=== PATIENT | female | born 1980 | race Caucasian/White ===

== ENCOUNTER 2016-12-09 15:30 | Emergency (ER) | payer OTHER ==
[~2016-12-09] VITALS: Ht 170.2 cm; Wt 106.3 kg
[~2016-12-09 15:30] MED LIST: ALPRAZOLAM1 MG PO; ASPIR 8181 M1 PO; CRESTOR PO; CYMBALTA PO; CYMBALTA60 MG PO; Desyrel PO; GLUCOPHAGE1000 MG PO; GLUCOPHAGE500 MG PO; IMODIUM2 MG PO; IRON PO; LANTUS 10100 UNITS/ SC; LANTUS 3 M100 UNITS1 SC; LEXAPRO20 MG PO; LISINOPRIL PO; MAGNESIUM250 MG PO; MOTRIN800 MG PO; MULTI VITAMIN1 EACH PO; NOVOLIN N100 UNITS/ SC; SEROQUEL100 MG PO; SEROquel PO; TRAZODONE HCL50 MG PO; XANAX1 MG PO
[2016-12-09] MEDS ORDERED: CELEXA40 MG PO (16:02)
[2016-12-09 16:40] LABS: EOSINOPHIL (%) 0.3 % (0-5); HEMATOCRIT 40.8 % (36.0-46.0); IMMATURE GRANULOCYTE (%) 0.5 % (0.0-0.7); INSTRUMENT ABS NEUTROPHIL CT 7.4 K/uL; LYMPHOCYTE COUNT 0.2 K/uL (1.0-2.8); MCH 27.8 PG (29.0-34.0); MCHC 33.1 G/DL (30.0-36.0); MEAN PLAT.VOLUME 10.6 uM^3 (9.5-12.4); MONOCYTE (%) 1.9 % (3-12); MONOCYTE COUNT 0.2 K/uL (0-0.8); NEUTROPHIL (%) 94.1 % (45-76); NEUTROPHIL COUNT 7.4 K/uL (1.8-6.4); PLATELET COUNT 214 K/uL (156-360); RBC DIS.WIDTH-CV 13.1 % (11.8-14.6); RBC DIS.WIDTH-SD 39.4 % (39-53); RED BLOOD COUNT 4.86 M/uL (3.80-5.20); WHITE BLOOD COUNT 7.8 K/uL (4.1-10.2)
[2016-12-09 16:49] LABS: CHLORIDE 104 mEq/L (99-109); POTASSIUM 3.9 mEq/L (3.7-5.4); SODIUM 136 mEq/L (136-147)
[2016-12-09 16:50] LABS: GLUCOSE 113 mg/dL (70-99)
[2016-12-09 16:50] LABS: ADD MIUA? YES; BILIRUBIN NEGATIVE; BLOOD SMALL; COLOR YELLOW ((YELLOW)); GLUCOSE (STRIP) NEGATIVE; KETONES 80; LEUKOCYTES NEGATIVE; NITRITE NEGATIVE; PROTEIN (STRIP) >=500; SPECIFIC GRAVITY 1.024 (1.000-1.030); UROBILINOGEN 0.2 MG/DL (0.2-1.0)
[2016-12-09 16:52] LABS: ANION GAP 15 MEQ/L (2-14)
[2016-12-09 16:54] LABS: GFR ESTIMATE (CALCULATED) > 59 mL/min/
[2016-12-09 16:55] LABS: UREA NITROGEN (BUN) 11 mg/dL (9-23)
[2016-12-09 16:57] LABS: INFLUENZA A VIRAL ANTIGEN NEGATIVE; INFLUENZA B VIRAL ANTIGEN NEGATIVE
[2016-12-09 16:58] LABS: BACTERIA RARE /HPF; EPITHELIAL CELLS 2+ /HPF; GRANULAR CASTS 0-5 /LPF; HYALINE CASTS 0-5 /LPF; MUCUS TRACE /LPF; RED BLOOD CELLS 0-5 /HPF (0-5); UCUL ADDED? NO; WHITE BLOOD CELLS 0-5 /HPF (0-5)
[2016-12-09 17:01] LABS: TROP-I INTERPRETATION NEGATIVE; TROPONIN-I < 0.01 ng/mL (0.0-0.30)
[2016-12-09 19:14] LABS: AMPHETAMINE NEGATIVE (500 ng/mL); BARBITURATES NEGATIVE (200 ng/mL); BENZODIAZEPINES PRESUMPTIVE POSITIVE (150 ng/mL); COCAINE NEGATIVE (150 ng/mL); INTERNAL CONTROLS VALID? YES; METHADONE NEGATIVE (200 ng/mL); METHAMPHETAMINE NEGATIVE (500 ng/mL); OPIATES (MORPHINE) NEGATIVE (100 ng/mL); OXYCODONE NEGATIVE (100 ng/mL); PHENCYCLIDINE NEGATIVE (25 ng/mL); PROPOXYPHENE NEGATIVE (300 ng/mL); THC CANNABINOIDS NEGATIVE (50 ng/mL); TRICYCLIC ANTIDEPRESSANTS NEGATIVE (300 ng/mL)
[2016-12-09 21:02] VITALS: BP 104/74
== END 2016-12-09 21:05 | disposition home or self-care (01) ==
LOC: EME 15:30
PROVIDERS: Physician Assistant
DX: E86.0 Dehydration (principal); R19.7 Diarrhea, unspecified; R50.9 Fever, unspecified; R11.2 Nausea with vomiting, unspecified; E11.9 Type 2 diabetes mellitus without complications; E78.5 Hyperlipidemia, unspecified; I10 Essential (primary) hypertension; Z79.84 Long term (current) use of oral hypoglycemic drugs
CPT/HCPCS: 71020; 80048; 81003; 83605; 84260 90; 84484; 84999; 85025; 87040; 87502; 93005; 99281; 99285; J7030

== ENCOUNTER 2017-02-03 09:02 | Emergency (ER) | payer OTHER ==
[~2017-02-03] VITALS: Ht 170.2 cm; Wt 98.1 kg
[~2017-02-03 09:02] MED LIST changes: +CELEXA40 MG PO
[2017-02-03] MEDS ORDERED: CITALOPRAM HBR10 MG PO (09:13)
[2017-02-03] MEDS ORDERED: ALPRAZOLAM0.5 MG PO (09:14)
[2017-02-03] MEDS ORDERED: ATENOLOL50 MG PO (09:15)
[2017-02-03] MEDS ORDERED: BUSPAR7.5 MG PO (09:15)
[2017-02-03] MEDS ORDERED: SEROQUEL300 MG PO (09:17)
[2017-02-03 09:39] LABS: EOSINOPHIL COUNT 0.1 K/uL (0-0.3); HEMATOCRIT 39.4 % (36.0-46.0); IMMATURE GRANULOCYTE (%) 0.2 % (0.0-0.7); INSTRUMENT ABS NEUTROPHIL CT 3.1 K/uL; LYMPHOCYTE COUNT 0.9 K/uL (1.0-2.8); MCH 27.6 PG (29.0-34.0); MCHC 32.7 G/DL (30.0-36.0); MCV 84.4 FL (83-99); MEAN PLAT.VOLUME 10.8 uM^3 (9.5-12.4); MONOCYTE (%) 6.5 % (3-12); MONOCYTE COUNT 0.3 K/uL (0-0.8); NEUTROPHIL (%) 70.5 % (45-76); NEUTROPHIL COUNT 3.1 K/uL (1.8-6.4); PLATELET COUNT 215 K/uL (156-360); RBC DIS.WIDTH-CV 12.7 % (11.8-14.6); RBC DIS.WIDTH-SD 38.9 % (39-53); RED BLOOD COUNT 4.67 M/uL (3.80-5.20); WHITE BLOOD COUNT 4.4 K/uL (4.1-10.2)
[2017-02-03 09:50] LABS: CHLORIDE 107 mEq/L (99-109); POTASSIUM 3.9 mEq/L (3.7-5.4); SODIUM 140 mEq/L (136-147)
[2017-02-03 09:52] LABS: GLUCOSE 117 mg/dL (70-99)
[2017-02-03 09:53] LABS: ANION GAP 12 MEQ/L (2-14)
[2017-02-03 09:55] LABS: SERUM ETHYL ALCOHOL < 10 mg/dL
[2017-02-03 09:56] LABS: GFR ESTIMATE (CALCULATED) > 59 mL/min/
[2017-02-03 09:57] LABS: UREA NITROGEN (BUN) 10 mg/dL (9-23)
[2017-02-03 10:06] LABS: QUANTITATIVE HCG < 4.0 MIU/ML
[2017-02-03 10:10] LABS: ADD MIUA? NO; BILIRUBIN NEGATIVE; BLOOD NEGATIVE; COLOR YELLOW ((YELLOW)); GLUCOSE (STRIP) NEGATIVE; KETONES 20; LEUKOCYTES NEGATIVE; NITRITE NEGATIVE; PROTEIN (STRIP) NEGATIVE; SPECIFIC GRAVITY 1.005 (1.000-1.030); UROBILINOGEN 0.2 MG/DL (0.2-1.0)
[2017-02-03 10:21] LABS: ADD MEDTOX COMMENT Y; AMPHETAMINE NEGATIVE (500 ng/mL); BARBITURATES NEGATIVE (200 ng/mL); BENZODIAZEPINES PRESUMPTIVE POSITIVE (150 ng/mL); COCAINE NEGATIVE (150 ng/mL); INTERNAL CONTROLS VALID? YES; METHADONE NEGATIVE (200 ng/mL); METHAMPHETAMINE NEGATIVE (500 ng/mL); OPIATES (MORPHINE) NEGATIVE (100 ng/mL); OXYCODONE NEGATIVE (100 ng/mL); PHENCYCLIDINE NEGATIVE (25 ng/mL); PROPOXYPHENE NEGATIVE (300 ng/mL); THC CANNABINOIDS NEGATIVE (50 ng/mL); TRICYCLIC ANTIDEPRESSANTS PRESUMPTIVE POSITIVE (300 ng/mL)
[2017-02-03 10:34] VITALS: BP 113/70
[2017-02-03 11:39] LABS: BENZODIAZEPINES, URINE SCREEN POSITIVE (200 ng/mL)
== END 2017-02-03 10:49 | disposition home or self-care (01) ==
LOC: EME 09:02
PROVIDERS: Emergency Medicine
DX: F41.9 Anxiety disorder, unspecified (principal); E28.2 Polycystic ovarian syndrome; I10 Essential (primary) hypertension; E78.5 Hyperlipidemia, unspecified; E11.9 Type 2 diabetes mellitus without complications; F32.9 Major depressive disorder, single episode, unspecified; Z79.4 Long term (current) use of insulin
CPT/HCPCS: 80048; 81003; 84702; 84999; 85025; 90839; 99281; 99284; G0480

== ENCOUNTER 2017-12-06 20:29 | Emergency (ER) | payer OTHER ==
[~2017-12-06] VITALS: Ht 170.2 cm; Wt 117.7 kg
[~2017-12-06 20:29] MED LIST changes: +ALPRAZOLAM0.5 MG PO; +ATENOLOL50 MG PO; +BUSPAR7.5 MG PO; +CITALOPRAM HBR10 MG PO; +SEROQUEL300 MG PO
[2017-12-06 22:47] LABS: HEMATOCRIT 42.9 % (36.0-46.0); HEMOGLOBIN 14.9 G/DL (11.9-15.5); MCH 29.6 PG (29.0-34.0); MCHC 34.7 G/DL (30.0-36.0); MCV 85.3 FL (83-99); PLATELET COUNT 304 K/uL (156-360); RBC DIS.WIDTH-CV 12.6 % (11.8-14.6); RBC DIS.WIDTH-SD 38.7 % (39-53); RED BLOOD COUNT 5.03 M/uL (3.80-5.20); WHITE BLOOD COUNT 9.7 K/uL (4.1-10.2)
[2017-12-06 22:55] LABS: CHLORIDE 103 mEq/L (99-109); POTASSIUM 4.3 mEq/L (3.7-5.4); SODIUM 141 mEq/L (136-147)
[2017-12-06 22:57] LABS: GLUCOSE 142 mg/dL (70-99)
[2017-12-06 23:00] LABS: SERUM ETHYL ALCOHOL < 10 mg/dL
[2017-12-06 23:01] LABS: AMPHETAMINE PRESUMPTIVE POSITIVE (500 ng/mL); BARBITURATES NEGATIVE (200 ng/mL); BENZODIAZEPINES PRESUMPTIVE POSITIVE (150 ng/mL); BUPRENORPHINE NEGATIVE (10 ng/mL); COCAINE NEGATIVE (150 ng/mL); METHADONE NEGATIVE (200 ng/mL); METHAMPHETAMINE NEGATIVE (500 ng/mL); OPIATES (MORPHINE) NEGATIVE (100 ng/mL); OXYCODONE NEGATIVE (100 ng/mL); PHENCYCLIDINE NEGATIVE (25 ng/mL); PROPOXYPHENE NEGATIVE (300 ng/mL); THC CANNABINOIDS NEGATIVE (50 ng/mL); TRICYCLIC ANTIDEPRESSANTS PRESUMPTIVE POSITIVE (300 ng/mL)
[2017-12-06 23:01] LABS: CREATININE 0.7 mg/dL (0.6-1.3); GFR ESTIMATE (CALCULATED) > 59 mL/min/
[2017-12-06 23:02] LABS: UREA NITROGEN (BUN) 10 mg/dL (9-23)
[2017-12-07 01:22] LABS: BENZODIAZEPINES, URINE SCREEN POSITIVE (200 ng/mL)
[2017-12-07] MEDS ORDERED: MELATONIN10 M2 PO (02:21)
[2017-12-07] MEDS ORDERED: GABAPENTIN300 MG PO (02:25)
[2017-12-07 08:18] VITALS: BP 105/53
== END 2017-12-07 08:27 ==
LOC: EME 20:29
PROVIDERS: Emergency Medicine
DX: R45.851 Suicidal ideations (principal); F33.2 Major depressive disorder, recurrent severe without psychotic features; F41.9 Anxiety disorder, unspecified; I10 Essential (primary) hypertension; E78.5 Hyperlipidemia, unspecified; E11.9 Type 2 diabetes mellitus without complications; E28.2 Polycystic ovarian syndrome
CPT/HCPCS: 80048; 82948; 84999; 85027; 90837; 99281; 99285; G0480